=== PATIENT | female | born 1990 | race Caucasian/White ===

== ENCOUNTER 2024-09-15 13:52 | Emergency (ER) | payer SELFPAY ==
[2024-09-15 14:00] VITALS: BP 128/84; PULSE 88; RESP 16; TEMP 98.2; BMI 21.4
[2024-09-15] MEDS ORDERED: ONDANSETRON 4 MG/2 ML VIAL IVPUSH ONE (15:11)
[2024-09-15] MEDS ORDERED: SODIUM CHLORIDE 1,000 ML IV ONE (15:11)
== END 2024-09-15 15:50 | disposition left against medical advice (07) ==
LOC: JER 13:52
DX: F11.93 Opioid use, unspecified with withdrawal (principal); M79.10 Myalgia, unspecified site; R11.0 Nausea; R45.4 Irritability and anger; R53.1 Weakness
CPT/HCPCS: 99283-25